=== PATIENT | female | born 1970 | race Caucasian/White ===

== ENCOUNTER 2019-08-07 08:07 | Emergency (ER) | payer BC ==
[~2019-08-07] VITALS: Ht 160 cm; Wt 68.5 kg
[2019-08-07 08:25] VITALS: BP 99/67; Ht 160 cm; Wt 68.5 kg
== END 2019-08-07 10:08 | disposition home or self-care (01) ==
LOC: ED 08:07
DX: S61.102A Unspecified open wound of left thumb with damage to nail, initial encounter (principal); E78.00 Pure hypercholesterolemia, unspecified; X58.XXXA Exposure to other specified factors, initial encounter; Y93.89 Activity, other specified; Y92.89 Other specified places as the place of occurrence of the external cause; Y99.8 Other external cause status
CPT/HCPCS: J2001